=== PATIENT | female | born 1995 | race African-American/Black ===

== ENCOUNTER 2017-10-21 17:35 | Emergency (ER) | payer OTHER ==
[~2017-10-21] VITALS: Ht 162.6 cm; Wt 61.5 kg
[~2017-10-21 17:35] MED LIST: NO MEDICATIONS
--- NOTE | 2017-10-21 18:21 | PHYS DOC ---
Past History Past Medical History: No Pertinent History Past Surgical History: No Surgical History Alcohol Use: None Drug Use: Marijuana Adult General Chief Complaint Chief Complaint: ABDOMINAL PAIN HPI HPI Patient is a 22 year old female who presents with complaint of lower abdominal pain. Patient states that her symptoms started 4 days ago. The patient states that she has been having trouble with lower abdominal pain and cramping around her menstrual cycles. Her last menstrual cycle started 4 days ago. The patient states that she recently delivered her third baby and has been recently having more painful menstrual cycles . The patient states that she has been following Dr. Salmeron's office and was started on Depo-Provera and was also given Toradol to help with her pain. Patient states her pain started again today. Patient states that she's had associated vomiting and diarrhea. Patient denies any nausea currently. Patient states that her pain is slightly better at this time compared to yesterday, rating it as 5 out of 10. Patient states that she is still having menstrual bleeding but states that it is less today than it has been from the start. Denies any fevers. Patient is not sure if she has a sexually transmitted infection and states that this could be a possibility. Review of Systems Review of Systems Constitutional: Denies fever or chills [] Eyes: Denies change in visual acuity, redness, or eye pain [] HENT: Denies nasal congestion or sore throat [] Respiratory: Denies cough or shortness of breath [] Cardiovascular: Denies chest pain or edema[] GI: Lower abdominal and pelvic pain, vomiting, diarrhea[] : Denies dysuria or hematuria [] Musculoskeletal: Denies back pain or joint pain [] Integument: Denies rash or skin lesions [] Neurologic: Denies headache, focal weakness or sensory changes [] All other systems were reviewed and found to be within normal limits, except as documented in this note. Allergies Allergies Allergies Coded Allergies Type Severity Reaction Last Updated Verified No Known Drug Allergies 04/15/15 No Physical Exam Physical Exam Constitutional: Well developed, well nourished, no acute distress, non-toxic appearance. [] HENT: Normocephalic, atraumatic, bilateral external ears normal, oropharynx moist, no oral exudates, nose normal. [] Eyes: PERRLA, EOMI, conjunctiva normal, no discharge. [] Neck: Normal range of motion, no tenderness, supple, no stridor. [] Cardiovascular:Heart rate regular rhythm, no murmur [] Lungs & Thorax: Bilateral breath sounds clear to auscultation [] Abdomen: Bowel sounds normal, soft, no tenderness, no masses, no pulsatile masses. Pelvic: Normal external exam, mild amount of menstrual bleeding noted from cervical os, cervical os closed, no cervical motion tenderness, no midline or bilateral adnexal tenderness on bimanual exam.[] Skin: Warm, dry, no erythema, no rash. [] Back: No tenderness, no CVA tenderness. [] Extremities: No tenderness, no cyanosis, no clubbing, ROM intact, no edema. [] Neurologic: Alert and oriented X 3, normal motor function, normal sensory function, no focal deficits noted. [] Current Patient Data Vital Signs Vital Signs Date Time Temp Pulse Resp B/P (MAP) Pulse Ox O2 Delivery O2 Flow Rate FiO2 10/21/17 17:35 98.6 68 18 98 Room Air Lab Results Laboratory Tests Test 10/21/17 17:33 10/21/17 18:20 Bedside Urine HCG, Qualitative hcg negative Urine Collection Type Unknown Urine Color Yellow Urine Clarity Clear Urine pH 6.0 Urine Specific Boyce 1.020 Urine Protein 30 mg/dl Urine Glucose (UA) Neg mg/dL Urine Ketones (Stick) Neg mg/dL Urine Blood Large Urine Nitrite Neg Urine Bilirubin Neg Urine Urobilinogen Dipstick 0.2 mg/dL Urine Leukocyte Esterase Neg Urine RBC 11-20 /HPF Urine WBC 1-4 /HPF Urine Squamous Epithelial Cells Occ /LPF Urine Amorphous Sediment Present /HPF Urine Bacteria 0 /HPF Urine Mucus Mod /LPF Current Medications Medications (Trade) Dose Ordered Sig/Rain Route PRN Reason Start Time Stop Time Status Last Admin Dose Admin Ibuprofen (Motrin) 600 mg 1X ONCE PO 10/21/17 18:30 10/21/17 18:31 DC 10/21/17 18:44 EKG EKG Not performed[] Radiology/Procedures Radiology/Procedures Not performed[] Course & Med Decision Making Course & Med Decision Making Pertinent Labs and Imaging studies reviewed. (See chart for details) Patient's pelvic exam is benign. The patient's symptoms appear consistent with dysmenorrhea. Patient treated with oral ibuprofen in the emergency department. We'll continue patient on ibuprofen treatment at home with recommended follow- up with patient's DO[employer] C[employer]TER in the next 5 days for reevaluation. Advised return emergency department for any worsening symptoms. Patient voiced understanding and in agreement with treatment plan. Dragon Disclaimer Dragon Disclaimer This electronic medical record was generated, in whole or in part, using a voice recognition dictation system. Departure Departure: Impression: Primary Impression: Dysmenorrhea Disposition: HOME, SELF-CARE Condition: IMPROVED Referrals: PCP,DIRK (PCP) Patient Instructions: Dysmenorrhea Additional Instructions: Follow-up with your DO[employer] C[employer]TER in the next 5 days for reevaluation. Return to the emergency department for any worsening symptoms. Scripts Ibuprofen (IBUPROFEN) 600 Mg Tablet 600 MG PO Q6HRS PRN for PAIN, #30 TAB Prov: RICKEY HURTADO MD 10/21/17 RICKEY HURTADO MD October 21, 2017 18:21
[2017-10-21] MEDS ORDERED: IBUPROFEN 600 MG TABLET. PO ONE (18:30)
[2017-10-21 19:09] LABS: AMORPHOUS SEDIMENT,UR PRESENT /HPF; BACTERIA,URINE 0 /HPF (0-FEW); BILIRUBIN,URINE NEG (NEG); CLARITY,URINE CLEAR; COLOR,URINE YELLOW; GLUCOSE,URINE NEG (NEG); NITRITE,URINE NEG (NEG); SQUAMOUS EPITHELIAL CELL,UR OCC /LPF; UROBILINOGEN,URINE 0.2 mg/dL (0.2 mg/dL)
[2017-10-21] MEDS ORDERED: IBUP600T16 PO (19:17)
[2017-10-21 19:20] VITALS: BP 116/77
[2017-10-23 14:09] LABS: CHLAMYDIA PROBE Negative (Negative)
== END 2017-10-21 19:24 | disposition home or self-care (01) ==
LOC: ER 17:35
DX: N94.6 Dysmenorrhea, unspecified (principal); F12.10 Cannabis abuse, uncomplicated
CPT/HCPCS: 36415; 81001; 81025; 87491; 87591; 99284; Q0111

== ENCOUNTER 2019-08-17 09:41 | Emergency (ER) | payer MEDICAID, OTHER ==
[~2019-08-17] VITALS: Ht 162.6 cm; Wt 56.3 kg
[2019-08-17 09:41] VITALS: BP 107/60
[~2019-08-17 09:41] MED LIST changes: +IBUP600T16 PO
--- NOTE | 2019-08-17 10:31 | PHYS DOC ---
Past History Past Medical History: No Pertinent History Past Surgical History: No Surgical History Alcohol Use: None Drug Use: Marijuana Adult General Chief Complaint Chief Complaint: PAIN ON URINATION HPI HPI Patient is a 24-year-old female who presents with complaint of 2 day history of urinary discomfort. Patient states that she is now having pain in her left lower back and thinks that infection may be going into her kidney. She denies any fever. She denies any chest pain or shortness breath. She does indicate that she has had some nausea but no vomiting. Patient rates pain as moderate.[] Review of Systems Review of Systems Constitutional: Denies fever or chills [] Respiratory: Denies cough or shortness of breath [] Cardiovascular: No additional information not addressed in HPI [] GI: Denies abdominal pain. [] : Complains of dysuria[] Musculoskeletal: Complains of left lower back pain [] Integument: Denies rash or skin lesions [] Allergies Allergies Allergies Coded Allergies Type Severity Reaction Last Updated Verified No Known Drug Allergies 04/15/15 No Physical Exam Physical Exam Constitutional: Well developed, well nourished, no acute distress, non-toxic appearance. [] Neck: Normal range of motion, no tenderness, supple, no stridor. [] Cardiovascular:Heart rate regular rhythm, no murmur [] Lungs & Thorax: Bilateral breath sounds clear to auscultation [] Abdomen: Bowel sounds normal, soft, no tenderness. [] Skin: Warm, dry, no erythema, no rash. [] Current Patient Data Lab Results Laboratory Tests Test 08/17/19 09:59 POC Urine HCG, Qualitative hcg negative (Negative) EKG EKG [] Radiology/Procedures Radiology/Procedures [] Course & Med Decision Making Course & Med Decision Making Pertinent Labs and Imaging studies reviewed. (See chart for details) [] Dragon Disclaimer Dragon Disclaimer This electronic medical record was generated, in whole or in part, using a voice recognition dictation system. Departure Departure: Impression: Primary Impression: UTI (urinary tract infection) Disposition: 01 HOME, SELF-CARE Condition: STABLE Referrals: PCP,NO (PCP) Patient Instructions: Urinary Tract Infection Scripts Phenazopyridine Hcl (PYRIDIUM) 100 Mg Tablet 1 TAB PO TID for urinary discomfort for 3 Days, #9 TAB 0 Refills Prov: RENETTA MAURICE Jr. DO 08/17/19 Sulfamethoxazole/Trimethoprim (BACTRIM DS TABLET) 1 Each Tablet 1 TAB PO BID for infection for 7 Days, #14 TAB 0 Refills Prov: RENETTA MAURICE Jr. DO 08/17/19 Problem Qualifiers Primary Impression: UTI (urinary tract infection) Urinary tract infection type: site unspecified Hematuria presence: without hematuria Qualified Codes: N39.0 - Urinary tract infection, site not specified RENETTA MAURICE Jr. DO Aug 17, 2019 10:31
[2019-08-17 10:37] LABS: BACTERIA,URINE MANY /HPF (0-FEW); BILIRUBIN,URINE NEG (NEG); CLARITY,URINE CLOUDY; COLOR,URINE YELLOW; GLUCOSE,URINE NEG (NEG); NITRITE,URINE NEG (NEG); UROBILINOGEN,URINE 0.2 mg/dL (0.2 mg/dL)
[2019-08-17 10:38] LABS: SQUAMOUS EPITHELIAL CELL,UR MOD /LPF
[2019-08-17] MEDS ORDERED: SULF1TAB24 PO (10:54)
[2019-08-17] MEDS ORDERED: PHEN100T82 PO (10:54)
== END 2019-08-17 11:05 | disposition home or self-care (01) ==
LOC: ER 09:41
DX: N39.0 Urinary tract infection, site not specified (principal)
CPT/HCPCS: 81001; 81025; 87086; 99283